=== PATIENT | female | born 2000 | race Caucasian/White ===

== ENCOUNTER 2023-11-28 10:05 | Inpatient (IN) ==
[2023-11-28] MEDS ORDERED: LIDOCAINE 1% LOCAL 20 ML VIAL INFIL PRN (10:35)
[2023-11-28] MEDS ORDERED: OXYTOCIN 30 UNITS/NSS 30 UNITS/500 ML BAG IV PRN (10:35)
--- NOTE | 2023-11-28 10:52 | Labor Progress Brief Note ---
Date of Service November 28, 2023 Subjective Contractions overnight Q4-7 min, painful, so came to L&D. On arrival also notes a ALVA last night that improved with tylenol. Has good FM, no LOF/VB, and no other co. Assessment & Plan (1) Normal labor: Plan: Contractions + cervical change. Will admit, epidural is requested. Pitocin vs AROM may be required, as toco very infrequent but will reassess for the need of this after she is comfortable. GDM noted, will check glucose, and initial BP elevated (though measured in a nonstandard position and while pt c/o pain) so will get labs for PIH. Physical Exam Genitourinary: [place] ~Q8, irreg Cvx 4/100/-2/bulging bag FHT 145 mod padmini +acc -dec Results & Data Vital Signs (Past 12 Hours) Vital Signs Pulse BP 11/28/23 10:15 100 H 159/97 H Coding Level of Care Code None Diagnoses Normal labor O80; Z37.9
[2023-11-28 11:04] LABS: Hematocrit (blood only) 37.8 % (37.0-47.0); Hemoglobin 12.5 g/dl (12.0-16.0); Mean Corpuscular Hgb Conc 33.1 g/dL (32.0-36.0); Mean Corpuscular Volume 90.6 fL (80.0-100.0); Mean Platelet Volume 10.3 fL (9.4-12.4); Platelet Count 219 K/uL (130-400); RDW Coefficient of Variation 13.5 % (11.5-14.5); RDW Standard Deviation 44.2 fL (36.4-46.3); Red Blood Count 4.17 M/uL (4.20-5.40); White Blood Count 10.78 K/ul (4.8-10.8)
[2023-11-28 11:19] LABS: Alanine Aminotransferase 22 U/L (7-52); Albumin Level 3.2 gm/dl (3.4-5.0); Alkaline Phosphatase 153 U/L (34-104); Anion Gap 7 (3-11); Aspartate Aminotransferase 22 U/L (13-39); BUN Creatinine Ratio 14.5 (10-20); Bilirubin,Total 0.3 mg/dl (0.2-1.0); Blood Urea Nitrogen 8 mg/dl (6-23); Calcium 8.9 mg/dl (8.6-10.3); Carbon Dioxide 23 mmol/L (21-32); Chloride 106 mmol/L (98-107); Creatinine Clr Calc Pharmacy 179.8 ml/min; Est GFR (African American) > 150.0 ml/min; Est GFR (Non-African American) 132.2 ml/min; Globulin 3.1 gm/dl (2.5-4.0); Glucose 107 mg/dl (70-99(Fasting)); Potassium 3.6 mmol/L (3.5-5.1); Sodium 136 mmol/L (136-145); Total Protein 6.3 gm/dl (6.0-8.3)
[2023-11-28] MEDS: LACTATED RINGER'S 1,000 ML IV PRN (11:20)
[2023-11-28 11:32] LABS: Creatinine Urine Random 31.4 mg/dl; Protein Creatinine Ratio Urine 0.2 (0-0.2); Total Protein Urine Random 6.4 mg/dl (0-11.9)
[2023-11-28] MEDS ORDERED: ePHEDrine sulfate 50 MG/ML AMP IV PRN (11:54)
[2023-11-28] MEDS ORDERED: NALOXONE HCL 0.4 MG/1 ML VIAL/CARP IV PRN (11:54)
[2023-11-28] MEDS ORDERED: LIDOCAINE 2% MPF LOCAL 5 ML VIAL EPI PRN (11:54)
[2023-11-28] MEDS ORDERED: NALBUPHINE HCL 5 MG in SYRINGE 0 ML IV PRN (11:54)
[2023-11-28] MEDS ORDERED: SODIUM CHLORIDE 0.9% PF INJ 10 ML VIAL EPI PRN (11:54)
[2023-11-28] MEDS ORDERED: fentaNYL citrate PF 100 MCG/2 ML VIAL EPI PRN (11:54)
[2023-11-28] MEDS ORDERED: diphenhydrAMINE 50 MG/ML VIAL IV PRN (11:54)
[2023-11-28] MEDS ORDERED: fentANYL 2 MCG/ML BUPIVacaine 0.125%-NSS 100ML BAG EPI PRN (11:54)
[2023-11-28] MEDS ORDERED: BUPIVACAINE 0.25% PF 30 ML VIAL EPI PRN (11:54)
[2023-11-28] MEDS ORDERED: NALOXONE HCL 1 MG in SODIUM CHLORIDE 0.9% 1,000 ML IV PRN (11:54)
[2023-11-28] MEDS ORDERED: ROPIVACAINE 0.5% PF 5 MG/ML 20 ML VIAL EPI PRN (11:54)
--- NOTE | 2023-11-28 11:56 | Anesthesiology Consultation ---
Date of Service November 28, 2023 Assessment & Plan (1) Encounter for pre-operative examination: Chart Review Chart Review: Patient NOT seen in Pre Admission Testing and Acceptable Risk for Labor Epidural Consults Requested none History Height/Weight Height: 5 ft 5 in Weight: 93.44 kg Allergies Allergy/AdvReac Type Severity Reaction Status Date / Time No Known Allergies Allergy Verified 11/26/23 11:59 Medications Home Medications Medication Instructions Recorded Confirmed Last Taken vit no.95-ferrous 1 tab PO DAILY 03/27/23 11/26/23 11/27/23 12:00 fumarate 28 mg-folic acid 800 mcg tablet () lansoprazole 15 mg capsule,delayed 15 mg PO DAILY #30 caps 09/21/23 11/26/23 11/27/23 21:00 release ondansetron HCl 4 mg tablet 4 mg PO Q6H PRN nausea and 09/21/23 11/26/23 11/27/23 09:00 vomiting #20 tabs acetone (urine) test (Ketone Urine #50 ea 10/02/23 11/26/23 Unknown Test strips) blood sugar diagnostic (OneTouch #150 ea 10/02/23 11/26/23 Unknown Verio test strips) blood-glucose meter (OneTouch #1 ea 10/02/23 11/26/23 Unknown Verio Reflect Meter) lancets 33 gauge (OneTouch Delica #150 ea 10/02/23 11/26/23 Unknown Plus Lancet) Active Medications Generic Name Dose Route Start Last Admin Trade Name Freq PRN Reason Stop Dose Admin Lactated Ringer's 1,000 mls @ 125 mls/hr 11/28/23 10:35 11/28/23 11:23 Lr IV 11/30/23 10:34 999 mls/hr .Q8H PRN Infusion L&D Protocol Protocol Past Medical History Medical History (Updated 11/28/23 @ 11:56 by Herman Dickens MD) Encounter for pre-operative examination Gallstones and inflammation of gallbladder without obstruction Varicella vaccination Infertility, female Asthma PCOS (polycystic ovarian syndrome) Pelvic pain Ovarian cyst Migraine Depression with anxiety Pyelonephritis Left ovarian cyst Dizziness Chronic chest pain Exercise / Class Metabolic Activity II 4-5 Yardwork/Stairs/Walk up hill Past Family History Family History Sister Anxiety Depression Mother Anxiety Depression Gallbladder disease Diabetes Father Colorectal cancer, Onset Age: 40 Cancer bone Brother Depression Grandmother (Maternal) Diabetes Denies family history of Ovarian cancer Breast cancer Past Surgical History Surgical History S/P right oophorectomy (2014) Pilar cyst s/p excision x2 by Dr. Valdes in Oct 2018 History of excision of lesion x3 lesions by Dr. Valdes in Oct 2018 Past Anesthesia History No Hx of Anesthesia Complications and No Family Hx of Anesthesia Complications History of PONV No Hx of PONV and No Hx of Motion Sickness Social History Smoking Status: Never smoker Do You Dip or Chew Tobacco: No Hx Alcohol Use: No Hx Substance Use: No Physical Exam Vital Signs Last Vital Signs Temp 36.8 C 11/28/23 10:15 Pulse 98 H 11/28/23 12:11 BP 151/91 H 11/28/23 10:48 Pulse Ox 99 11/28/23 12:11 Testing Laboratory Results 11/28/23 10:44 11/28/23 10:44
[2023-11-28] MEDS: fentaNYL citrate PF 100 MCG/2 ML VIAL ONE (12:16)
[2023-11-28] MEDS: BUPIVACAINE 0.25% PF 30 ML VIAL ONE (12:17)
[2023-11-28] MEDS: LIDOCAINE 2%/EPINEPHRINE 1:200,000 20 ML PF ONE (12:17)
[2023-11-28] MEDS: SODIUM CHLORIDE 0.9% PF INJ 10 ML VIAL ONE (12:18)
[2023-11-28] MEDS: fentANYL 2 MCG/ML BUPIVacaine 0.125%-NSS 100ML BAG ONE (12:18)
[2023-11-28] MEDS: CALCIUM CARBONATE 500 MG CHEWABLE TAB PO PRN (13:22)
[2023-11-28] MEDS: ONDANSETRON INJ 2 MG/ML 2 ML VIAL IV PRN (15:05)
[2023-11-28] MEDS: OXYTOCIN 30 UNITS/NSS 30 UNITS/500 ML BAG IV PRN (15:05)
[2023-11-28] MEDS: BUPIVACAINE 0.25% PF 30 ML VIAL EPI STA (18:01)
[2023-11-28] MEDS: LIDOCAINE 2%/EPINEPHRINE 1:200,000 20 ML PF EPI STA (18:01)
[2023-11-28] MEDS: ePHEDrine sulfate 50 MG/ML AMP ONE (18:01)
[2023-11-28] MEDS: fentaNYL citrate PF 100 MCG/2 ML VIAL EPI STA (18:01)
[2023-11-28] MEDS: SODIUM CHLORIDE 0.9% PF INJ 10 ML VIAL EPI STA (18:01)
--- NOTE | 2023-11-28 18:47 | Delivery Summary ---
Vaginal Delivery Summary Date of Service November 28, 2023 Vaginal Delivery Summary DIAGNOSES: 1. [place] intrauterine at 40w1d gestation. 2. Spontaneous onset of labor. 3. Group B Streptococcus Neg. 4. Gestational diabetes 5. Gestational hypertension PROCEDURE: Spontaneous vaginal delivery and repair of second degree laceration. SURGEON: Rosangela Ibrahim MD. CHIEF UNDERWRITER: None. ESTIMATED BLOOD LOSS: 350 mL. COMPLICATIONS: None. PLACENTA: Spontaneous and intact with a 3-vessel cord. DISPOSITION: Stable to labor and delivery. DESCRIPTION: The patient pushed well and brought the head to in DOA position. The 's head was allowed to deliver with contraction force and no further active pushing, with the perineum protected during this time. There was a double nuchal cord. The right shoulder was anterior. The shoulders and body required Noelle position and Suprapubic pressure in concert with maternal pushing effort to deliver, with a total of 50sec between head and complete delivery. The was placed on the maternal abdomen. The cord was doubly clamped by the MD and then cut quickly so the could be moved to the warmer for attention; of note, the infant gave a loud cry while being carried from mom to the warmer. The placenta delivered spontaneously and was noted to be intact and with a 3VC. The cervix, vagina and perineum were examined and were found to have a second-degree laceration which was repaired in the usual manner including 2 crown stitches to rebuild the perineal body. The fundus was firm and lochia minimal immediately after delivery. [facility] Vaginal Delivery Charge Vaginal Delivery Codes: 78694 global code for the antepartum, delivery, and post-
[2023-11-28] MEDS ORDERED: HYDROCORTISONE ACETATE 25 MG SUPP PR PRN (19:02)
[2023-11-28] MEDS ORDERED: bisacodyL 10 MG SUPP PR PRN (19:02)
[2023-11-28] MEDS ORDERED: DIPHTHER/TETAN/PERTUS Vaccine (Tdap, Adol/Adult) 0.5mL IM ONE (19:02)
[2023-11-28] MEDS ORDERED: oxyCODONE/ACETAMINOPHEN 5mg/325mg TAB PO PRN (19:02)
--- NOTE | 2023-11-28 19:27 | Anesthesia Procedure Note ---
Date of Service November 28, 2023 Anesthesia Post Epidural Note Vital Signs Vital Signs: Temp Pulse Resp BP Pulse Ox 36.8 C 109 H 16 98/63 L 98 11/28/23 17:00 11/28/23 19:17 11/28/23 17:30 11/28/23 19:17 11/28/23 18:46 Notes Mental Status: alert / awake / arousable and participated in evaluation Patient Amnestic to Procedure: No Nausea / Vomiting: adequately controlled Pain: adequately controlled Airway Patency, RR, SpO2: stable & adequate BP & HR: stable & adequate Hydration State: stable & adequate Neuraxial Anesthesia: was administered and sensory block is resolving Anesthetic Complications: no major complications apparent and Pt Satisfied with anesthetic care Epidural: Removed without complications and With tip intact
[2023-11-28] MEDS: IBUPROFEN 600 MG TAB PO PRN (21:51)
[2023-11-28] MEDS: BENZOCAINE 20% SPRY 85 APPLN/85 GM CAN EXT PRN (21:51)
[2023-11-28] MEDS: DOCUSATE SODIUM 100 MG CAP PO SCH (21:52)
[2023-11-29] MEDS: ACETAMINOPHEN 325 MG TAB PO PRN (00:49)
--- NOTE | 2023-11-29 06:44 | Obstetrical Progress Note ---
Date of Service November 29, 2023 Assessment & Plan (1) state: Recovering well PPD#1 from , 2nd degree. Routine care today, D/C tomorrow per conversation with patient this morning. Subjective Ambulation: ambulating normally Voiding: no voiding problems Passing Gas:: Yes Diet Tolerance:: regular diet Lochia:: Small Feeding Type:: bottle feeding Current Pain Level(1-10): 0 Physical Exam Constitutional WD/WN, vitals as above Eyes PERRL, conjunctivae normal, anicteric sclerae ENMT external ear and nose normal, oropharynx normal Neck trachea midline, no thyromegaly Respiratory normal respiratory effort and able to speak in complete sentences; no respiratory distress, no labored breathing and does not use accessory muscles Cardiovascular Rate/Rhythm: regular rate and regular rhythm Extremities: no calf tenderness and no pedal edema Chest (Breasts) Breast: normal inspection of breasts Gastrointestinal (Abdomen) Inspection/Auscultation: abdomen normal to inspection; abdomen not distended Musculoskeletal no cyanosis or clubbing, extremities motor strength 5/5 Skin no rashes, warm and dry Neurologic patellar DTR's 2+ bilat, sensation intact Psychiatric A+Ox3, euthymic affect Genitourinary Speculum/Bimanual Exam: uterus nontender OB Exam Abdomen: + fundal height (at umbilicus) Fundus: + firm Results & Data Vital Signs (Past 12 Hours) Vital Signs Temp Pulse Pulse Resp BP BP Pulse Ox 11/29/23 03:45 98.1 F 90 18 115/74 97 11/28/23 23:45 97.5 F L 75 18 142/88 H 98 11/28/23 21:25 98.2 F 90 18 126/82 98 11/28/23 20:46 93 H 135/83 11/28/23 20:45 97.7 F 16 11/28/23 20:31 100 H 129/76 11/28/23 20:16 97 H 124/75 11/28/23 20:15 16 11/28/23 20:01 104 H 123/82 11/28/23 19:46 87 134/83 11/28/23 19:45 16 11/28/23 19:31 93 H 131/82 11/28/23 19:30 16 11/28/23 19:17 109 H 98/63 L 11/28/23 19:15 16 02/28/24 19:03 110 H 147/86 H 11/28/23 19:00 16 11/28/23 18:46 109 H 98 11/28/23 18:45 110 H 137/66 O2 Del Method 11/29/23 03:45 Room Air 11/28/23 23:45 Room Air 11/28/23 21:25 Room Air 11/28/23 20:46 11/28/23 20:45 11/28/23 20:31 11/28/23 20:16 11/28/23 20:15 11/28/23 20:01 11/28/23 19:46 11/28/23 19:45 11/28/23 19:31 11/28/23 19:30 11/28/23 19:17 11/28/23 19:15 11/28/23 19:03 11/28/23 19:00 11/28/23 18:46 11/28/23 18:45
[2023-11-29 07:11] LABS: Hematocrit (blood only) 33.6 % (37.0-47.0); Hemoglobin 11.4 g/dl (12.0-16.0); Mean Corpuscular Hemoglobin 30.7 pg (25.0-34.0); Mean Corpuscular Hgb Conc 33.9 g/dL (32.0-36.0); Mean Corpuscular Volume 90.6 fL (80.0-100.0); Mean Platelet Volume 10.5 fL (9.4-12.4); Platelet Count 185 K/uL (130-400); RDW Coefficient of Variation 13.7 % (11.5-14.5); RDW Standard Deviation 44.7 fL (36.4-46.3); Red Blood Count 3.71 M/uL (4.20-5.40); White Blood Count 13.53 K/ul (4.8-10.8)
[2023-11-29] MEDS: PRENATAL VITAMIN 1 TAB PO SCH (07:40)
[2023-11-29] MEDS: bisacodyL 5 MG TABEC PO SCH (19:55)
[2023-11-30 06:03] LABS: Hematocrit (blood only) 33.9 % (37.0-47.0); Hemoglobin 11.5 g/dl (12.0-16.0)
--- NOTE | 2023-11-30 06:52 | Obstetrical Progress Note ---
Date of Service November 30, 2023 Assessment & Plan (1) state: 23 yo PP2 from , doing well -Meeting all pp milestones -Rh+/rubella NI/bottle -f/u 6 weeks for appt, dc home today Subjective Ambulation: ambulating normally Voiding: no voiding problems Passing Gas:: Yes Diet Tolerance:: regular diet Lochia:: Small Feeding Type:: bottle feeding Pain well managed with medication Review of Systems Denies fevers, chills, n/v, ALVA, CP, SOB Physical Exam Constitutional WD/WN, vitals as above no acute distress Respiratory normal respiratory effort; no respiratory distress and no labored breathing Gastrointestinal (Abdomen) Percussion/Palpation: abdomen soft; abdomen nontender fundus firm at umbilicus and NT Musculoskeletal BLE symmetric mildly swollen, nonerythematous, nontender Results & Data Vital Signs (Past 12 Hours) Vital Signs Temp Pulse Resp BP Pulse Ox O2 Del Method 11/29/23 23:30 98.1 F 86 16 119/73 98 Room Air 11/29/23 19:50 97.5 F L 97 H 18 126/84 98 Room Air
[2023-11-30 09:10] VITALS: BP 126/85; PULSE 89; RESP 18; TEMP 97.3; O2SAT 97
[2023-11-30] MEDS ORDERED: MEASLES, MUMPS & RUBELLA VIRUS VACCINE (MMR) VIAL SQ ONE (11:12)
== END 2023-11-30 11:25 | disposition home or self-care (01) | DRG 807 ==
LOC: OPB 10:05 → 4S1 10:07 → 4E2 21:30
DX: O24.429 Gestational diabetes mellitus in childbirth, unspecified control; Z37.0 Single live birth; Z3A.40 40 weeks gestation of pregnancy; O99.52 Diseases of the respiratory system complicating childbirth; J45.909 Unspecified asthma, uncomplicated; O70.1 Second degree perineal laceration during delivery; Z79.899 Other long term (current) drug therapy; O69.81X0 Labor and delivery complicated by cord around neck, without compression, not applicable or unspecified; O13.4 Gestational [pregnancy-induced] hypertension without significant proteinuria, complicating childbirth